=== PATIENT | female | born 1965 | race Caucasian/White ===

== ENCOUNTER 2017-04-10 11:50 | Emergency (ER) | payer MEDICARE, MEDICAID ==
[2017-04-10 12:09] VITALS: BP 112/70
--- NOTE | 2017-04-10 12:36 | UC ---
Respiratory Complaint HPI - HPI Summary HPI Summary: Severe MRGeorges she has hx of pneumonia. she has had a cough and congestion since yesterday. Low grade fever. She is her usual self and still eating and drinking. no known lung disease. no vomiting or rash. Many sick contacts in the home. - History of Current Complaint Chief Complaint: UCGeneralIllness Stated Complaint: COLD SYMPTOMS Time Seen by Provider: 04/10/17 12:22 Hx Obtained From: Family/Secretary Office Clerk Hx Last Menstrual Period: NONE ?: No Onset/Duration: Gradual Onset, Lasting Hours Timing: Constant Severity Initially: Mild Severity Currently: Mild Character: Cough: Nonproductive Aggravating Factors: Nothing Alleviating Factors: Nothing Associated Signs And Symptoms: Positive: Fever, URI, Nasal Congestion. Negative : Calf Pain, Calf Swelling, Edema - Allergies/Home Medications Allergies/Adverse Reactions: Allergies Allergy/AdvReac Type Severity Reaction Status Date / Time RAGWEED Allergy Sneezing Uncoded 04/10/17 12:10 Home Medications: Home Medications Artificial Saliva [Biotene Oralbalance Dry M] 1 gel MT BID 04/10/17 [History Confirmed 04/10/17] Carboxymethylcellulose Sodium [Refresh Tears] 1 drop BOTH EYES TID 04/10/17 [ History Confirmed 04/10/17] Clindamycin Phosphate-Benzoyl [Clindamycin/Benzoyl Perox] 1 gel EX BID 04/10/17 [History Confirmed 04/10/17] Levothyroxine TAB* [Synthroid TAB*] 75 mcg PO DAILY 04/10/17 [History Confirmed 04/10/17] Loratadine 10 mg PO BEDTIME 04/10/17 [History Confirmed 04/10/17] Prednisolone Acetate (Ophth) [Pred Forte] 1 drop LEFT EYE DAILY 04/10/17 [ History Confirmed 04/10/17] Sertraline* [Zoloft*] 50 mg PO DAILY 04/10/17 [History Confirmed 04/10/17] Skin Oils [Baby Oil] 3 drop BOTH EARS SEE INSTRUCTIONS 04/10/17 [History Confirmed 04/10/17] Tolnaftate [Tinactin] 1 udc TOPICAL DAILY 04/10/17 [History Confirmed 04/10/17] PMH/Surg Hx/FS Hx/Imm Hx Previously Healthy: No - Surgical History Surgical History: Yes Surgery Procedure, Year, and Place: Corneal transplant - Family History Known Family History: Positive: Other - no related lung disease. - Social History Lives: Nursing Home Alcohol Use: None Substance Use Type: None Smoking Status (MU): Never Smoked Tobacco Review of Systems ENT: Sinus Congestion Respiratory: Cough All Other Systems Reviewed And Are Negative: Yes Physical Exam Triage Information Reviewed: Yes Appearance: No Pain Distress, Well-Nourished Vital Signs: Initial Vital Signs Temp 97.9 F 04/10/17 12:01 Pulse 71 04/10/17 12:01 Resp 16 04/10/17 12:01 BP 112/70 04/10/17 12:01 Pulse Ox 98 04/10/17 12:01 Vital Signs Reviewed: Yes Eye Exam: Normal ENT: Positive: Nasal congestion, TMs normal. Negative: Tonsillar swelling, Tonsillar exudate, Trismus Neck exam: Normal Neck: Positive: Supple, Nontender, No Lymphadenopathy Respiratory Exam: Normal Respiratory: Positive: Lungs clear, Normal breath sounds, No respiratory distress, No accessory muscle use. Negative: Respiratory distress, Decreased breath sounds, Crackles, Rhonchi, Stridor, Wheezing Cardiovascular Exam: Normal Cardiovascular: Positive: RRR, No Murmur, Pulses Normal, Brisk Capillary Refill Abdomen Description: Positive: Nontender, No Organomegaly, Soft. Negative: Distended, Guarding Musculoskeletal: Positive: ROM Intact, No Edema Skin Exam: Normal Skin: Negative: rashes, breakdown UC Diagnostic Evaluation - Laboratory O2 Sat by Pulse Oximetry: 98 Respiratory Course/Dx - Course Course Of Treatment: we discussed and wrote a plan of care which is close follow up given her hx but at the moment she has no signs of pneumonia either clinically or by vitals. this is most c/w with viral illness but with her complicated hx we urged close follow up if not improved in 3-5 days. - Differential Dx/Diagnosis Provider Diagnoses: uri Discharge - Discharge Plan Condition: Good Disposition: HOME Patient Education Materials: Viral Syndrome (ED), Upper Respiratory Infection ( ED) Referrals: Avinash Tapia MD [Primary Care Provider] - If Needed
== END 2017-04-10 12:47 | disposition home or self-care (01) ==
LOC: UCCORT 11:50
DX: J06.9 Acute upper respiratory infection, unspecified (principal); J30.1 Allergic rhinitis due to pollen; Z94.7 Corneal transplant status
CPT/HCPCS: 99202; G0463

== ENCOUNTER 2017-12-16 09:55 | Emergency (ER) | payer MEDICARE, MEDICAID ==
[2017-12-16 10:48] VITALS: BP 104/67
--- NOTE | 2017-12-16 11:44 | UC ---
Respiratory Complaint HPI - HPI Summary HPI Summary: 52 year old female with fever and cough. Caregiver states yesterday patient had 102F fever, cough, chest congestion x 2 days. Has had pneumonia in the past in the left lung. Otherwise acting normal. [ End ] - History of Current Complaint Chief Complaint: UCRespiratory Stated Complaint: COUGH/CONGESTION Time Seen by Provider: 12/16/17 11:26 Hx Obtained From: Patient, Family/Carbide Die Maker Hx Last Menstrual Period: n/a Onset/Duration: Gradual Onset Timing: Constant Severity Initially: Mild Severity Currently: Moderate Pain Intensity: 0 Character: Cough: Productive Associated Signs And Symptoms: Positive: Fever, Nasal Congestion - Allergies/Home Medications Allergies/Adverse Reactions: Allergies Allergy/AdvReac Type Severity Reaction Status Date / Time RAGWEED Allergy Sneezing Uncoded 12/16/17 10:44 Home Medications: Home Medications Docusate CAP* [Colace Cap*] 100 mg PO DAILY 12/16/17 [History Confirmed 12/16/17 ] Fluticasone NASAL SPRAY 50MCG* [Flonase NASAL SPRAY 50MCG*] 2 spray BOTH NARES DAILY 12/16/17 [History Confirmed 12/16/17] Loratadine 10 mg PO DAILY 12/16/17 [History Confirmed 12/16/17] Omeprazole CAP* [Prilosec CAP* 20 MG] 20 mg PO DAILY 12/16/17 [History Confirmed 12/16/17] Sertraline* [Zoloft*] 100 mg PO DAILY 12/16/17 [History Confirmed 12/16/17] Simvastatin TAB(NF) [Zocor(NF)] 40 mg PO 1700 12/16/17 [History Confirmed ] PMH/Surg Hx/FS Hx/Imm Hx Previously Healthy: Yes Cardiovascular History: Hypertension Respiratory History: Pneumonia GI/ History: Gastroesophageal Reflux Psychological History: Anxiety, Depression - Surgical History Surgical History: Yes Surgery Procedure, Year, and Place: Corneal transplant - Family History Known Family History: Positive: Other - no related lung disease. - Social History Occupation: Unemployed Lives: [place] Alcohol Use: None Substance Use Type: None Smoking Status (MU): Never Smoked Tobacco Review of Systems Constitutional: Fever ENT: Sore Throat, Ear Ache, Nasal Discharge, Sinus Congestion, Sinus Pain/ Tenderness Respiratory: Cough Is Patient Immunocompromised?: No All Other Systems Reviewed And Are Negative: Yes Physical Exam Triage Information Reviewed: Yes Appearance: Well-Appearing, No Pain Distress, Well-Nourished Vital Signs: Initial Vital Signs Temp 98.2 F 12/16/17 10:40 Pulse 60 12/16/17 10:40 Resp 20 12/16/17 10:40 BP 104/67 12/16/17 10:40 Pulse Ox 100 12/16/17 10:40 Vital Signs Reviewed: Yes Eye Exam: Normal ENT Exam: Normal Dental Exam: Normal Neck exam: Normal Neck: Positive: 1 Respiratory Exam: Normal Respiratory: Positive: Decreased breath sounds - right, Wheezing - right, Inspiration. Negative: No respiratory distress, No accessory muscle use, Respiratory distress Cardiovascular Exam: Normal Abdominal Exam: Normal Musculoskeletal Exam: Normal Neurological Exam: Normal Psychological Exam: Normal Skin Exam: Normal UC Diagnostic Evaluation - Laboratory O2 Sat by Pulse Oximetry: 100 Respiratory Course/Dx - Course Course Of Treatment: Concern this could deteriorate like previously in to pneumonia and will treat at this time. VSS and no acute concerns otherwise. F/U with PCP - Differential Dx/Diagnosis Differential Diagnosis/HQI/PQRI: Bronchitis, Influenza, Laryngitis, Lower Resp Infection, Sinusitis Provider Diagnoses: Bronchitis Discharge - Sign-Out/Discharge Documenting (check all that apply): Discharge/Admit/Transfer - Discharge Plan Condition: Good Disposition: HOME Prescriptions: Amoxicillin/Clavulanate TAB* [Augmentin TAB 875*] 875 mg PO BID 10 Days #20 tab Patient Education Materials: Acute Bronchitis (ED) Referrals: Avinash Tapia MD [Primary Care Provider] - 4 Days - Billing Disposition and Condition Condition: GOOD Disposition: HOME
== END 2017-12-16 12:05 | disposition home or self-care (01) ==
LOC: UCCORT 09:55
DX: J40 Bronchitis, not specified as acute or chronic (principal); F41.8 Other specified anxiety disorders; I10 Essential (primary) hypertension; K21.9 Gastro-esophageal reflux disease without esophagitis
CPT/HCPCS: 99212; G0463